=== PATIENT | female | born 1990 | race Caucasian/White ===

== ENCOUNTER 2018-08-06 22:10 | Emergency (ER) | payer BC ==
[2018-08-06 22:16] VITALS: BP 101/75
--- NOTE | 2018-08-06 22:23 | EDPHY ---
H & P Stated Complaint: lac to left dee Time Seen by Provider: 08/06/18 22:20 HPI/ROS: HPI: This is a 27-year-old female who presents with Chief Complaint: Laceration to left dee Location: Left dee Quality: Laceration Duration: Prior to arrival Signs and Symptoms: No bleeding, no radiation, no numbness, no weakness, no tingling, no incontinence, no decreased range of motion, no swelling, no pain, no fever Timing: Acute Severity: [id number] Context: Patient was playing with her dog, jumping up and down on a cement step , when she accidentally slipped and skinned her left dee. She reports that she felt immediate, moderate, constant, nonradiating pain. It started to bleed but stopped with direct pressure. Tetanus is not current. Denies radiation, weakness, decreased range of motion. Patient is leaving for [place] in 1 week. LMP 2-3 weeks ago Modifying Factors: Comment: ROS: A comprehensive 10 system review of systems is otherwise negative aside from elements mentioned in the history of present illness. MEDICAL/SURGICAL/SOCIAL HISTORY: Medical history: Generally healthy. Does not take any regular medications. Surgical history: Denies Social history: Never smoked. Employed. CONSTITUTIONAL: Well-developed, well-nourished adult white female awake and alert, no obvious distress HEENT: Atraumatic and normocephalic. NECK: supple EXTREMITIES: 2/2 pulses, strength 5/5, left dee shows 3 cm x 2 cm complete skin avulsion on anterior left lower leg-no active bleeding. DIP/PIP/MCP flexion /extension intact with good light touch sensation. no deformities, no clubbing, no cyanosis or edema. NEUROLOGICAL: no focal neuro deficits. GCS 15. Light touch sensation intact. SKIN: Warm and dry, no erythema. no rash. Good capillary refill. Source: Patient Exam Limitations: No limitations - Personal History LMP (Females 10-55): 15-21 Days Ago Current Tetanus/Diphtheria Vaccine: No Current Tetanus Diphtheria and Acellular Pertussis (TDAP): No - Medical/Surgical History Hx Asthma: No Hx Chronic Respiratory Disease: No Hx Diabetes: No Hx Cardiac Disease: No Hx Renal Disease: No Hx Cirrhosis: No Hx Alcoholism: No Hx HIV/AIDS: No Hx Splenectomy or Spleen Trauma: No Other PMH: denies - Social History Smoking Status: Never smoked Constitutional: Initial Vital Signs Temperature (C) 36.7 C 08/06/18 22:13 Heart Rate 79 08/06/18 22:13 Respiratory Rate 16 08/06/18 22:13 Blood Pressure 101/75 08/06/18 22:13 O2 Sat (%) 94 08/06/18 22:13 O2 Delivery Mode Room Air Allergies/Adverse Reactions: No Known Allergies Allergy (Unverified 08/06/18 22:13) Home Medications: Medication Instructions Recorded Cephalexin [Keflex (*)] 500 mg PO TID #21 cap 08/06/18 Medical Decision Making ED Course/Re-evaluation: Tetanus booster ordered. Local anesthesia provided with 6 mL of 1% lidocaine with epinephrine. Irrigated copiously. Unable to suture as complete superficial skin avulsion. Steri-Strips applied and then clean sterile dressing placed. 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 Verbal and written wound care instructions provided. No signs of neurovascular compromise/tenting of skin/compartment syndrome/ extremities and joints examined above and below area of concern and are neurovascularly intact. This patient was seen under the supervision of my secondary supervising physician. I evaluated care for this patient independently. Discussed this patient with Dr. Guzman. Differential Diagnosis: Differential diagnosis includes but is not limited to laceration, nerve injury, muscle injury, skin avulsion. - Data Points Medications Given: Discontinued Medications Diphtheria/Tetanus/Acell Pertussis (Boostrix) 0.5 ml IM .ONCE ONE Stop: 08/06/18 22:34 Last Admin: 08/06/18 22:40 Dose: 0.5 ml Departure - Departure Disposition: Home, Routine, Self-Care Clinical Impression: Avulsion of skin of left lower leg Qualifiers: Encounter type: initial encounter Qualified Code(s): S81.802A - Unspecified open wound, left lower leg, initial encounter Condition: Good Instructions: Skin Avulsion (ED), Laceration Without Closure (ED), Steristrips (ED) Additional Instructions: Keep the dressing dry and in place for 48 hours. After 48 hours, you may remove the dressing; wash the site daily with mild soap and water; then pat dry and apply topical antibiotic ointment. Allow Steri-Strips to fall off on their own. Keep wound covered until fully healed. Take Tylenol 650 mg every 4 hours and/or Ibuprofen 600 mg every 8 hours with food as needed for pain. Take Keflex as directed for antibiotic prophylaxis. Return to the ER immediately if you experience redness, red streaks, have fevers /chills, flu like symptoms, limited range of motion, or any other symptoms that concern you. Referrals: [facility],. [Clinic] - As per Instructions Prescriptions: Cephalexin [Keflex (*)] 500 mg PO TID #21 cap
[2018-08-06] MEDS ORDERED: TDAP ADULT 0.5 ML INJ (BOOSTRIX) IM ONE (22:33)
== END 2018-08-06 23:06 | disposition home or self-care (01) ==
DX: S81.802A Unspecified open wound, left lower leg, initial encounter (principal); Z23 Encounter for immunization; W10.8XXA Fall (on) (from) other stairs and steps, initial encounter; Y93.K9 Activity, other involving animal care; Y99.8 Other external cause status